=== PATIENT | female | born 1930 | race Caucasian/White ===

== ENCOUNTER 2020-03-20 17:50 | Inpatient (IN) ==
[2020-03-20] MEDS ORDERED: SODIUM CHLORIDE 0.9% 250 ML IV PRN ×3 (18:19→21:25)
[2020-03-20] MEDS ORDERED: SODIUM CHLORIDE 0.9% 500 ML IV SCH (18:30)
--- NOTE | 2020-03-20 18:33 | Emergency Department Note ---
Impression & Plan Anemia, Weakness, SOB (shortness of breath), Fatigue ED Provider Note NAME: EDUARDO LOPEZ AGE: 89 SEX: F : 1930 ARRIVES VIA: Walk-In INFORMANT: [Patient][son, azra king] ED PROVIDER(S): [Adiel Hansen MD] CHIEF COMPLAINT: Fatigue HISTORY OF PRESENT ILLNESS: The patient is an 89-year-old female who presents to the ER with weakness and fatigue for about a month. She feels dizzy at times. She has noticed some increasing shortness of breath with exertion. No chest pain. No fever, chills, cough or congestion. No abdominal pain. No black or bloody stool, no urinary complaints. The patient saw her doctors office today, her lab work revealed a hemoglobin of 5.8. She was sent to the ED. The patient states that she has never had a blood transfusion, she has never had GI bleeding. She has no real history of severe anemia. REVIEW OF SYSTEMS: See HPI for pertinent positives and negatives. A total of ten systems were revie wed and were otherwise negative. PMHx/PSHx: See Below SOCIAL HISTORY: See Below. PHYSICAL EXAM: GENERAL: Patient is in no acute distress. HEENT: No acute trauma, normocephalic atraumatic, mucous membranes moist, no nasal congestion, no scleral icterus. NECK: No stridor, no adenopathy, no meningismus, trachea is midline. LUNGS: Clear to auscultation bilaterally, no wheeze, no rhonchi, breath sounds equal. HEART: 3/6 systolic murmur, regular rate and rhythm. ABDOMEN: Soft, nontender, bowel sounds positive, no hernias, no peritonitis. EXTREMITIES: No cyanosis or edema, full range of motion of all the joints without pain or difficulty, no signs for acute trauma. NEUROLOGIC: Oriented x 3, no acute motor or sensory deficits, no focal weakness. SKIN: No rash, no jaundice, no diaphoresis. Pale. Rectal: Brown stool, heme-negative. DIFFERENTIAL DIAGNOSIS: Infection, dehydration, metabolic abnormality, hypo/hyperglycemia, electrolyte disturbance, anemia, GI bleed, hypoxia, cardiac sources, intracerebral event, toxicologic, neurologic, as well as other pathologies. EMERGENCY DEPARTMENT COURSE/PROCEDURES: ECG: Indication was weakness. The ECG shows a normal sinus rhythm with some potential LVH. The rate is 74. The QTc is 412. There is no ST elevation, no PVCs. There is poor R wave progression. Continuous Cardiac Monitoring: An order was placed for continuous cardiac monitoring. The monitor shows a rate of 72 with normal sinus rhythm. Critical Care Note: I have personally spent greater than 33 minutes of critical care time in the direct management of this patient. This includes bedside care, interpretation of diagnostic studies, and testing, discussion with consultants, patient, and family members, and other required patient management activities. This 33 minutes is in excess of all separately billable procedures. MEDICAL DECISION MAKING: There is no leukocytosis. The patient is anemic with a hemoglobin of 5.6. Platelet count is normal. No coagulopathy. There is some mild renal insufficiency but this has been documented before. No significant electrolyte abnormality requiring correction. No evidence for liver enzyme elevation. The patient appeared to be in a euthyroid state. ECG showed a sinus rhythm, no acute ischemia. Cardiac enzyme testing x1 is not consistent with acute cardiac injury. Chest film does not show pneumonia or CHF. On exam, the patient was not febrile or toxic. She did appear pale. Rectal exam was heme-negative. Patient received a 500 cc saline bolus. She was ordered for 1 unit of packed red blood cells to be transfused while here in the ED. She did sign consent for the transfusion. The cause for the anemia is not clear. Further work-up in the hospital is required. The patient will likely require more than 1 unit of packed red blood cells. I spoke to the patient and case management. The on-call hospitalist has been consulted. Past Med/Surg History Medical History Cerebellar infarct (Inactive) Chronic kidney disease, stage IV (severe) (Chronic) Mixed hyperlipidemia (Chronic) No pertinent past medical history Pre-diabetes (Chronic) TIA (transient ischemic attack) (Acute) Vertebral artery dissection (Chronic) Surgical History S/P appendectomy (Resolved) Family History Sister TIA (transient ischemic attack) Brother Cancer Heart disease Social History Preferred Language: Croatian Communication Ability: Effective Java Developer Required: No Beliefs That Will Affect Care: None Current Living Situation: Alone Feels Safe at Home: Yes Smoking Status: Never smoker Second Hand Exposure: No ; Hx Alcohol Use: Yes Alcohol type: hard liquor Alcohol Intake Frequency Comment: Pt drinks [place] 2-3 x per week. Hx Substance Use: No Allergies Allergies Allergy/AdvReac Type Severity Reaction Status Date / Time No Known Allergies Allergy Unverified 03/20/20 20:00 Home Meds Home Medications Medication Instructions Recorded Confirmed amlodipine [Norvasc] 2.5 mg PO DAILY 03/20/20 03/20/20 aspirin 81 mg PO DAILY 03/20/20 03/20/20 atorvastatin [Lipitor] 10 mg PO DAILY 03/20/20 03/20/20 cholecalciferol (vitamin D3) 75 mcg PO DAILY 03/20/20 03/20/20 [Vitamin D3] cyanocobalamin (vitamin B-12) 1,000 mcg PO DAILY 03/20/20 03/20/20 [Vitamin B-12] Results & Data (ED) Vital Signs Vital Signs - 24 hr 03/20/20 17:57 03/20/20 18:42 03/20/20 19:06 Temperature 36.4 C L Temperature Source Oral Pulse Rate 84 72 Pulse Rate from SpO2 Sensor 74 Respiratory Rate 18 18 Respiratory Effort / Characteristics Non-Labored Respiratory Depth Normal Blood Pressure 145/62 H 139/65 Blood Pressure Mean 89 98 Pulse Oximetry 96 95 97 Oxygen Delivery Method Room Air Room Air Sepsis Recent Fever Within 48 Hours No Sepsis Action Taken by Nursing No Action Required 03/20/20 19:30 03/20/20 20:00 03/20/20 20:15 Temperature 36.7 C Temperature Source Oral Pulse Rate 74 83 92 H Pulse Rate from SpO2 Sensor 76 83 Respiratory Rate 18 18 18 Respiratory Effort / Characteristics Respiratory Depth Blood Pressure 143/75 H 138/114 H 152/72 H Blood Pressure Mean 114 122 98 Pulse Oximetry 97 97 97 Oxygen Delivery Method Sepsis Recent Fever Within 48 Hours Sepsis Action Taken by [facility] Medications Current Medication List: was personally reviewed by me Laboratory Data Attestation: I reviewed the patient's lab results. Result diagrams: 03/20/20 18:23 03/20/20 18:23 Lab Results 03/20/20 03/20/20 03/20/20 Range/Units 18:23 18:23 18:23 WBC 7.30 (4.8-10.8) K/uL RBC 2.58 L (4.2-5.4) M/uL Hgb 5.6 L* (12.0-16.0) g/dL Hct 18.9 L* (37-47) % MCV 73.3 L (80-100) fL MCH 21.7 L (25-34) pg MCHC 29.6 L (32-36) g/dL RDW Std Deviation 44.8 (36.4-46.3) fL RDW Coeff of Marucs 16.6 H (11.5-14.5) % Plt Count 232 (130-400) K/uL MPV 9.2 (7.4-10.4) fL Immature Gran % (Auto) 0.3 % Neut % (Auto) 43.0 % Lymph % (Auto) 43.4 % [place] % (Auto) 7.8 % Eos % (Auto) 4.5 % Baso % (Auto) 1.0 % Neut # (Auto) 3.14 (1.4-6.5) K/uL Lymph # (Auto) 3.17 (1.2-3.4) K/uL [place] # (Auto) 0.57 (0.11-0.59) K/uL Eos # (Auto) 0.33 (0-0.5) K/uL Baso # (Auto) 0.07 (0-0.2) K/uL Immature Gran # (Auto) 0.02 (0.00-0.02) K/uL Hypochromasia Present Poikilocytosis Present PT 11.8 (9.0-12.0) Seconds INR 1.1 (0.9-1.1) APTT 24.7 (21.0-31.0) Seconds PTT Ratio 0.9 Sodium (136-145) mmol/L Potassium (3.5-5.1) mmol/L Chloride (98-107) mmol/L Carbon Dioxide (21-32) mmol/L Anion Gap (3-11) BUN (7-18) mg/dl Creatinine (0.6-1.2) mg/dl Est Cr Clr Drug Dosing ml/min Est GFR ( Amer) Est GFR (Non-Af Amer) BUN/Creatinine Ratio (10-20) Glucose (70-99) mg/dl Calcium (8.5-10.1) mg/dl Magnesium (1.8-2.4) mg/dl Total Bilirubin (0.2-1) mg/dl AST (15-37) U/L ALT (12-78) U/L Alkaline Phosphatase (45-117) U/L Troponin I (0-0.045) ng/ml Total Protein (6.4-8.2) gm/dl Albumin (3.4-5.0) gm/dl Globulin (2.5-4.0) gm/dl Albumin/Globulin Ratio (0.9-2) TSH (0.300-4.500) uIu/ml Blood Type O Positive Blood Type Recheck Antibody Screen NEGATIVE Crossmatch See Detail 03/20/20 03/20/20 Range/Units 18:23 18:47 WBC (4.8-10.8) K/uL RBC (4.2-5.4) M/uL Hgb (12.0-16.0) g/dL Hct (37-47) % MCV (80-100) fL MCH (25-34) pg MCHC (32-36) g/dL RDW Std Deviation (36.4-46.3) fL RDW Coeff of Marcus (11.5-14.5) % Plt Count (130-400) K/uL MPV (7.4-10.4) fL Immature Gran % (Auto) % Neut % (Auto) % Lymph % (Auto) % [place] % (Auto) % Eos % (Auto) % Baso % (Auto) % Neut # (Auto) (1.4-6.5) K/uL Lymph # (Auto) (1.2-3.4) K/uL [place] # (Auto) (0.11-0.59) K/uL Eos # (Auto) (0-0.5) K/uL Baso # (Auto) (0-0.2) K/uL Immature Gran # (Auto) (0.00-0.02) K/uL Hypochromasia Poikilocytosis PT (9.0-12.0) Seconds INR (0.9-1.1) APTT (21.0-31.0) Seconds PTT Ratio Sodium 139 (136-145) mmol/L Potassium 4.4 (3.5-5.1) mmol/L Chloride 106 (98-107) mmol/L Carbon Dioxide 26 (21-32) mmol/L Anion Gap 7.0 (3-11) BUN 28 H (7-18) mg/dl Creatinine 1.34 H (0.6-1.2) mg/dl Est Cr Clr Drug Dosing 22.4 ml/min Est GFR ( Amer) 40.6 Est GFR (Non-Af Amer) 35.0 BUN/Creatinine Ratio 20.7 H (10-20) Glucose 106 H (70-99) mg/dl Calcium 9.1 (8.5-10.1) mg/dl Magnesium 2.2 (1.8-2.4) mg/dl Total Bilirubin 0.3 (0.2-1) mg/dl AST 27 (15-37) U/L ALT 11 L (12-78) U/L Alkaline Phosphatase 78 (45-117) U/L Troponin I < 0.015 (0-0.045) ng/ml Total Protein 7.1 (6.4-8.2) gm/dl Albumin 3.8 (3.4-5.0) gm/dl Globulin 3.3 (2.5-4.0) gm/dl Albumin/Globulin Ratio 1.1 (0.9-2) TSH 1.970 (0.300-4.500) uIu/ml Blood Type Blood Type Recheck O Positive Antibody Screen Crossmatch Administered Medications Discontinued Medications Sodium Chloride (Nss) 500 mls @ 999 mls/hr IV .Q31M [facility] Stop: 03/20/20 19:00 Last Infusion: 03/20/20 19:29 Dose: 0 mls/hr Documented by: [id number] Admin: 03/20/20 18:45 Dose: 999 mls/hr Documented by: [id number] Imaging Data Radiologist's Impression: XR chest 1V portable CLINICAL HISTORY: weakness COMPARISON STUDY: 05/24/2018 FINDINGS: The cardiac and mediastinal contours remain stable. There is a retrocardiac opacity consistent with a hiatal hernia. There is no lobar consolidation. There is no failure. There is are no pleural effusions. There is minor basilar interstitial thickening/atelectasis.[ IMPRESSION: No active disease in the chest. Blood Pressure Blood Pressure Findings: Elevated blood pressure Blood Pressure Disposition: further management by hospitalist Discharge Plan Visit Data Chief Complaint: Abnormal Labs/Diagnostic Testing Stated Complaint: REFERRED BY DR. HENRIQUEZ FOR ABNORMAL LABS ED Provider: Adiel Hansen Discharge Problem: Anemia, Weakness, SOB (shortness of breath), Fatigue Patient Disposition: Admitted As Inpatient Condition: Good Forms Stand Alone Forms: [facility] Emergency Department, Important Visit Information Prescriptions Prescriptions: No Action atorvastatin [Lipitor] 10 mg tablet 10 mg PO DAILY RF: 0 cyanocobalamin (vitamin B-12) [Vitamin B-12] 1,000 mcg Tablet 1,000 mcg PO DAILY RF: 0 amlodipine [Norvasc] 2.5 mg tablet 2.5 mg PO DAILY RF: 0 aspirin 81 mg Tablet,Delayed Release (Dr/Ec) 81 mg PO DAILY RF: 0 cholecalciferol (vitamin D3) [Vitamin D3] 25 mcg (1,000 unit) Tablet 75 mcg PO DAILY RF: 0 Referrals Referrals: Roderick Henriquez MD [Primary Care Provider] - Discharge Problem: Anemia Qualifiers: Anemia type: unspecified type Qualified Code(s): D64.9 - Anemia, unspecified Fatigue Qualifiers: Fatigue type: unspecified Qualified Code(s): R53.83 - Other fatigue
[2020-03-20 18:52] LABS: INR 1.1 (0.9-1.1); Partial Thromboplastin Ratio 0.9; Partial Thromboplastin Time 24.7 Seconds (21.0-31.0); Prothrombin Time 11.8 Seconds (9.0-12.0)
[2020-03-20 18:53] LABS: Hematocrit (blood only) 18.9 % (37-47); Hemoglobin 5.6 g/dL (12.0-16.0); Mean Corpuscular Hemoglobin 21.7 pg (25-34); Mean Corpuscular Hgb Conc 29.6 g/dL (32-36); Mean Corpuscular Volume 73.3 fL (80-100); Mean Platelet Volume 9.2 fL (7.4-10.4); Platelet Count 232 K/uL (130-400); RDW Coefficient of Variation 16.6 % (11.5-14.5); RDW Standard Deviation 44.8 fL (36.4-46.3); Red Blood Count 2.58 M/uL (4.2-5.4)
--- NOTE | 2020-03-20 19:00 | XRay Report ---
XR chest 1V portable CLINICAL HISTORY: weakness COMPARISON STUDY: 05/24/2018 FINDINGS: The cardiac and mediastinal contours remain stable. There is a retrocardiac opacity consist ent with a hiatal hernia. There is no lobar consolidation. There is no failure. There is are no pleur al effusions. There is minor basilar interstitial thickening/atelectasis.[ IMPRESSION: No active disease in the chest. ACT 112: Negative or not required by law. Electronically signed by: Luis Hodges M.D. 03/20/2020 6:59 PM
[2020-03-20 19:09] LABS: Alanine Aminotransferase 11 U/L (12-78); Albumin Level 3.8 gm/dl (3.4-5.0); Aspartate Aminotransferase 27 U/L (15-37); BUN Creatinine Ratio 20.7 (10-20); Blood Urea Nitrogen 28 mg/dl (7-18); Calcium 9.1 mg/dl (8.5-10.1); Carbon Dioxide 26 mmol/L (21-32); Chloride 106 mmol/L (98-107); Creatinine Clr Calc Pharmacy 22.4 ml/min; Est GFR (African American) 40.6; Glucose 106 mg/dl (70-99); Magnesium 2.2 mg/dl (1.8-2.4); Potassium 4.4 mmol/L (3.5-5.1); Sodium 139 mmol/L (136-145)
[2020-03-20 19:19] LABS: Albumin Globulin Ratio 1.1 (0.9-2); Alkaline Phosphatase 78 U/L (45-117); Bilirubin,Total 0.3 mg/dl (0.2-1); Globulin 3.3 gm/dl (2.5-4.0); Total Protein 7.1 gm/dl (6.4-8.2); Troponin I < 0.015 ng/ml (0-0.045)
[2020-03-20 19:57] LABS: Basophils # (auto) 0.07 K/uL (0-0.2); Eosinophils # (auto) 0.33 K/uL (0-0.5); Eosinophils % (auto) 4.5 %; Hypochromasia Present; Immature Granulocytes # (auto) 0.02 K/uL (0.00-0.02); Immature Granulocytes % (auto) 0.3 %; Lymphocytes # (auto) 3.17 K/uL (1.2-3.4); Lymphocytes % (auto) 43.4 %; Monocytes # (auto) 0.57 K/uL (0.11-0.59); Monocytes % (auto) 7.8 %; Neutrophils # (auto) 3.14 K/uL (1.4-6.5); Poikilocytosis Present
[2020-03-20] MEDS ORDERED: SODIUM CHLORIDE 0.9% 1000ML 1,000 ML IV SCH (20:30)
[2020-03-20 20:45] LABS: Appearance Urine Clear (Clear); Bilirubin Urine Negative (Negative); Blood Urine Negative (Negative); Color Urine Yellow; Glucose Urine UA Negative (Negative); Ketones Urine Negative (Negative); Leukocyte Esterase Urine Negative (Negative); Nitrite Urine Negative (Negative); Protein Urine Negative (Negative); Specific Gravity Urine 1.009 (1.000-1.030); Urobilinogen Urine Negative (Negative); pH Urine 7.5 (4.5-7.5)
--- NOTE | 2020-03-20 20:58 | History & Physical Report ---
Date of Service March 20, 2020 Assessment & Plan (1) Anemia: Yanet Smith is a generally healthy 89 year old woman living independently with PMH of TIA and HTN who presents with several months of progressive fatigue, dyspnea with exertion and more frequent lightheadedness Symptomatic Anemia Patient found to have anemia of 5.8, microcytic No hisory of GI bleeding or melena that she can recall, hemoccult in ED negative Due to progressive and mild nature of symptoms and last admission two years ago with hemoglobin around 12 this has likely been a slow progressive process Suspect likely iron deficiency possible long GI bleed that recently resolved. Will order anemia workup, Iron studies, reticulocyte count, LDH, haptoglobin, B12, folate, TSH Will continue to check stools for hemoccult Will get CT abdomen for concern of any kind of retroperitoneal bleeding Transfusing 2 units at present will recheck CBC in am Will likely need colonoscopy either here if any active bleeding or as an outpatient History of TIA HOlding ASA and clopidogrel Continue statin Lower limb edema Mild, likely secondary to Amolidpine Will check echo cardiogram in am with progressive exertional dyspnea and leg swelling symptoms to evaluate for any CHF Dispo: Admit to PCU for transfusion, h and h monitoring and continued evaluation for any GI bleeding DVT PPx: SCD's F/E/N: NPO DNR/DNI (2) Weakness: (3) SOB (shortness of breath): (4) Fatigue: (5) Chronic kidney disease, stage IV (severe): (6) TIA (transient ischemic attack): History of Present Illness Chief Complaint: Symptomatic Anemia Primary Care Provider: Roderick Henriquez MD Yanet Smith is an incredibly sweet and generally very healthy 89 year old woman with a past medical history significant for TIA and hypertension and anemia who is here today for severe symptomatic anemia discovered in her PCP's office. She has been feeling weak and occasionally dizzy off and on for the past few months. This has included some progressive exertional dyspnea. She lives alone at home and does all her own housework and notices that she cannot do as much as she could before due to getting short of breath. She denies any hematochezia, melena, hematuria, hematemesis or hemoptysis, denies abdominal pain, vaginal bleeding, fevers, chills, shortness of breath at rest, cough, nausea, vomiting, diarrhea, or neuro symptoms she does endorse occasional constipation and leg swelling that seems to be worst at night and best in the morning. She lost about 30 pounds last year following a hip injury and feels that at times she doesn't have much appetite but she has held steady in her weight and appetite the last few months and has not been having any muscle weakness that she or her son has noticed. She denies smoking, drinks occasional alcohol and no recreational drug use. No other concerns at present she wishes to be DNR/DNI, she is consented for blood transfusion. Allergies Allergy/AdvReac Type Severity Reaction Status Date / Time No Known Allergies Allergy Unverified 03/20/20 20:00 Home Medications Home Medications Medication Instructions Recorded Confirmed Type amlodipine [Norvasc] 2.5 mg PO DAILY 03/20/20 03/20/20 History atorvastatin [Lipitor] 10 mg PO DAILY 03/20/20 03/20/20 History cholecalciferol (vitamin D3) 75 mcg PO DAILY 03/20/20 03/20/20 History [Vitamin D3] cyanocobalamin (vitamin B-12) 1,000 mcg PO DAILY 03/20/20 03/20/20 History [Vitamin B-12] Past Med/Surg History Medical History Cerebellar infarct (Inactive) Chronic kidney disease, stage IV (severe) (Chronic) Mixed hyperlipidemia (Chronic) No pertinent past medical history Pre-diabetes (Chronic) TIA (transient ischemic attack) (Acute) Vertebral artery dissection (Chronic) Surgical History S/P appendectomy (Resolved) Family History Sister TIA (transient ischemic attack) Brother Cancer Heart disease Social History Preferred Language: Czech Communication Ability: Effective Manager Medical Required: No Beliefs That Will Affect Care: None Current Living Situation: Alone Feels Safe at Home: Yes Smoking Status: Never smoker Second Hand Exposure: No ; Hx Alcohol Use: Yes Alcohol type: hard liquor Alcohol Intake Frequency Comment: Pt drinks [place] 2-3 x per week. Hx Substance Use: No Review of Systems Review of Systems: All systems reviewed & are unremarkable except as noted in HPI & below Physical Exam Constitutional: well developed and well nourished; no acute distress, not ill appearing and no altered mental status Eyes: PERRL, conjunctivae normal, anicteric sclerae Respiratory: normal respiratory effort, lungs clear to auscultation Cardiovascular: Rate/Rhythm: regular rate and regular rhythm Heart Sounds: no click, no gallop, no murmur and no cardiac rub Extremities: + edema (bilateral 1+ pitting edema) Gastrointestinal (Abdomen): normal bowel sounds, soft, nontender, no hepatosplenomegaly Skin: no rashes, warm and dry Results & Data Results & Data ([facility]) Vital Signs (Past 12 Hours) Vital Signs Temp Pulse Resp BP Pulse Ox 03/20/20 20:35 36.7 C 79 18 142/70 H 98 03/20/20 20:15 36.7 C 92 H 18 152/72 H 97 03/20/20 20:00 83 18 138/114 H 97 03/20/20 19:30 74 18 143/75 H 97 03/20/20 19:06 72 18 139/65 97 03/20/20 18:42 95 03/20/20 17:57 36.4 C L 84 18 145/62 H 96 Supervising Physician Co-Signing Physician Notes Attending addendum: I have physically seen this patient, have supervised the medical residents activities, and agree with the H&P unless as otherwise noted. Assessment and Plan: Symptomatic anemia- Hemoglobin 5.6 upon admission, with hypochromic and microcytic indices. Check the usual studies: Iron studies, reticulocyte, haptoglobin, B12, folate, TSH and LDH. Hemoccult stools N.p.o. except essential medications Order CT abdomen pelvis to look for occult bleed Start with 2 units transfusing PRBCs from the ED H&H every 6 hours Protonix drip Consult gastroenterology History of TIA- Hold aspirin and clopidogrel Lower extremity edema- Hold amlodipine. 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 Resident Activity Tracking Resident Involvement: Resident Care Provided Care Provided: Adult Hospital Medicine (1) Fatigue Fatigue type: unspecified Qualified Code(s): R53.83 - Other fatigue (2) Anemia Anemia type: unspecified type Qualified Code(s): D64.9 - Anemia, unspecified
[2020-03-20] MEDS ORDERED: ACETAMINOPHEN 325 MG TAB PO PRN (21:25)
[2020-03-20] MEDS ORDERED: POLYETHYLENE (MIRALAX) 17 GM PACK PO PRN (21:25)
[2020-03-20] MEDS ORDERED: ONDANSETRON INJ 2 MG/ML 2 ML VIAL IV PRN (21:25)
[2020-03-20 21:47] LABS: Reticulocyte % 1.6 % (0.5-2.0); Reticulocytes # 0.04 10^6/uL (0.02-0.10)
[2020-03-20 22:26] LABS: C Reactive Protein < 0.29 mg/dl (0-0.29); Ferritin 4.2 ng/ml (8-388); Iron 20 mcg/dl (35-150); Total Iron Binding Capacity 420 mcg/dl (250-450); Transferrin 301 mg/dl (200-360)
[2020-03-21 06:08] LABS: Hematocrit (blood only) 24.8 % (37-47); Hemoglobin 7.7 g/dL (12.0-16.0); Mean Corpuscular Volume 77.3 fL (80-100); Mean Platelet Volume 8.8 fL (7.4-10.4); Platelet Count 176 K/uL (130-400); RDW Coefficient of Variation 16.6 % (11.5-14.5); RDW Standard Deviation 47.1 fL (36.4-46.3); Red Blood Count 3.21 M/uL (4.2-5.4)
[2020-03-21 06:27] LABS: Basophils # (auto) 0.04 K/uL (0-0.2); Basophils % (auto) 0.6 %; Eosinophils # (auto) 0.44 K/uL (0-0.5); Eosinophils % (auto) 6.6 %; Hypochromasia Present; Immature Granulocytes # (auto) 0.01 K/uL (0.00-0.02); Immature Granulocytes % (auto) 0.1 %; Lymphocytes # (auto) 3.32 K/uL (1.2-3.4); Lymphocytes % (auto) 49.6 %; Monocytes # (auto) 0.52 K/uL (0.11-0.59); Monocytes % (auto) 7.8 %; Neutrophils # (auto) 2.37 K/uL (1.4-6.5); Neutrophils % (auto) 35.3 %
--- NOTE | 2020-03-21 07:59 | CT Scan Report ---
ABDOMEN AND PELVIS CT WITHOUT CONTRAST CT DOSE: 306.26 mGy.cm HISTORY: Acute generalized abdominal pain Concern for retroperitoneal bleeding TECHNIQUE: Multiaxial CT images of the abdomen and pelvis were performed without contrast. A dose lo wering technique was utilized adhering to the principles of ALARA. COMPARISON STUDY: None. FINDINGS: Mild traction bronchiectasis with subpleural reticular fibrosis and atelectasis of the lung bases. No pneumatosis or pneumoperitoneum. The imaged inferior cardiac chambers are unremarkable in size. Decr eased attenuation of the cardiac blood pole suggests anemia. Extensive coronary artery calcifications . Limited evaluation of the solid abdominal organs without the use of IV contrast. The liver is somewha t diminutive in size. Liver and spleen are otherwise unremarkable. Distended gallbladder with choleli thiasis. No gallbladder wall thickening or pericholecystic fluid identified. No appreciable biliary d uctal dilation. Mild generalized pancreatic atrophy. Unremarkable adrenal glands. Kidneys are within normal limits. Mild urinary bladder distention. Unremarkable appearance of uterus. No adnexal mass le sions. Calcified plaque of the abdominal aorta. Multiple phleboliths of the pelvis. No adenopathy or retroperitoneal hematoma. Moderate sized hiatal hernia with distal esophageal wall thickening and periesophageal varices. No cyndy wel obstruction or bowel wall thickening. Colonic diverticulosis without acute diverticulitis. Modera te fecal retention. The appendix is not diagnostically visualized and is reportedly surgically absent . Calcified granulomata of the subcutaneous gluteal distributions. Demineralized appearance of the cyndy carmel. Degenerative changes of the spine, pelvis and hips. Irregular sclerosis of the right sacrum may reflect a healed remote sacral insufficiency fracture. Ununited chronic fracture of the right inferio r pubic ramus. Partially healed remote appearing fracture of the right superior pubic ramus. Lumbar l evoscoliosis. Grade 1 anterolisthesis L4 on L5, likely degenerative. Superior endplate compression de formity at T9. T11 burst fracture with 3 mm retropulsion. Mild superior endplate compression deformit y at T12. Burst fracture at L1 with 7 mm retrolisthesis. Superior endplate compression deformities at L2 and L3 without significant retropulsion. Mild inferior endplate compression deformity at L5. No s ignificant paravertebral edema. IMPRESSION: 1. No acute intra-abdominal or intrapelvic abnormality. 2. No bowel obstruction or bowel wall thickening. 3. Multiple age-indeterminate compression deformities of the thoracic and lumbar spine, several of wh ich demonstrate associated retropulsion. Correlate with patient history and point tenderness to deter mine acuity. 4. Distended gallbladder with cholelithiasis. No definite CT evidence of acute cholecystitis. 5. Moderate sized hiatal hernia. 6. Moderate fecal retention. 7. Colonic diverticulosis without acute diverticulitis. ACT 112: Negative or not required by law. The above report was generated using voice recognition software. It may contain grammatical, syntax o r spelling errors. Electronically signed by: Himanshu Joshi M.D. 03/21/2020 7:57 AM
[2020-03-21] MEDS ORDERED: CHOLECALCIFEROL 1,000 UNITS 25 MCG TAB PO SCH (09:00)
[2020-03-21] MEDS ORDERED: CYANOCOBALAMIN 500 MCG TABLET (VITAMIN B-12) PO SCH (09:00)
[2020-03-21] MEDS ORDERED: ATORVASTATIN 10 MG TAB PO SCH (09:00)
--- NOTE | 2020-03-21 18:23 | Discharge Summary ---
Date of Service March 21, 2020 Admission HPI Per Admitting Provider Yanet Smith is an incredibly sweet and generally very healthy 89 year old woman with a past medical history significant for TIA and hypertension and anemia who is here today for severe symptomatic anemia discovered in her PCP's office. She has been feeling weak and occasionally dizzy off and on for the past few months. This has included some progressive exertional dyspnea. She lives alone at home and does all her own housework and notices that she cannot do as much as she could before due to getting short of breath. She denies any hematochezia, melena, hematuria, hematemesis or hemoptysis, denies abdominal pain, vaginal bleeding, fevers, chills, shortness of breath at rest, cough, nausea, vomiting, diarrhea, or neuro symptoms she does endorse occasional constipation and leg swelling that seems to be worst at night and best in the morning. She lost about 30 pounds last year following a hip injury and feels that at times she doesn't have much appetite but she has held steady in her weight and appetite the last few months and has not been having any muscle weakness that she or her son has noticed. She denies smoking, drinks occasional alcohol and no recreational drug use. No other concerns at present she wishes to be DNR/DNI, she is consented for blood transfusion. Principal Diagnosis symptomatic anemia, presumably gi source of blood loss (for outpatient w/u) Discharge Exam gen aao pleasant nad heent nc at mmm breathing unlabored no accessory muscles good effort skin no rashes no pallor or icterus neuro cn 2-12 grossly intact gross motor intact. mental status good Discharge Data Allergies Allergy/AdvReac Type Severity Reaction Status Date / Time No Known Allergies Allergy Unverified 03/20/20 20:00 Consultations 03/20/20 18:59 ED Decision to Admit Stat Ordered Studies 03/20/20 21:25 CT abd pelvis wo con Urgent Hospital Course (1) Anemia: symptomatic, Hgb 5.6 on admission --> transfused 2 units and improved to 7.7 ---feels much better, vitals stable, no hemorrhage - stable for outpt w/u ---discussed typical w/u for this being colo - she doesn't believe she's ever had one. discussed more controversial utility given her age, but since CT did not show anything worrisome, it's quite unlikely that she would have anything invasive or metastatic - and therefore something that might be amenable to endoscopic intervention is more possible. set up w GI to discuss further - stable for home CKD ~3-4 (?accuracy of cockroft gault in a nearly 89 year old) - stable, outpt f/u. stable for home Total Time Total Time Spent Total Time Spent (In Minutes): >30 Discharge Plan Discharge Items Patient Disposition: Home - Self-Care Reason For Visit: SEVERE SYMPTOMATIC ANEMIA Discharge Diagnosis: anemia - see below Condition on Discharge: Good Activity: Resume your previous activity Non-emergency contact: Primary Care Provider Call non-emergency contact if: you have any medication questions Follow-up/Referrals: Sukhjinder Gooden MD [Physician] - 03/23/20 2:05 pm (Please, follow up at [facility] with Dr. Gooden on March 23 at 2:20 pm (arrive 2:05 pm). *The office is located at [address] [place] [address] in [facility]). If you need to change this appointment, call the office at [phone]. BE SURE TO WEAR A MASK. THANK YOU) Roderick Henriquez MD [Primary Care Provider] - 03/29/20 10:30 am (Please, follow up with Dr. Eugenio Henriquez on FridayMarch 29 at 10:30 am. *If you need to change this appointment, call the office at [phone].) Diet: Regular Addtl Attending Provider Instructions: anemia (low blood counts) -you were admitted due to symptoms from having very low blood counts (normal is about 12, you were 5.6; now you're up to 7.7 - typically people don't require transfusions unless they're at least under 7). as we discussed, the most common reason for low blood counts like this is a slow oozing of blood in the GI tract - and therefore the next step in going about getting to the bottom of it is a colonoscopy. since you presented with the symptoms of anemia, not of bleeding (ie you showed up due to the low blood counts, not due to a hemorrhage) it's highly likely that this blood loss slowly occurred over months and months. with this in mind, it is certainly safe to get you home and follow through with the rest of this as an outpatient -to keep an eye on things and hopefully stave off a future admission, we'd ask that Dr Henriquez check your blood counts around once every week or so for the near- future (at least until we get to the bottom of where the bleeding was coming from). -to make sure there's minimal ongoing bleeding, we'll have you stop taking your 81mg aspirin for now -- once the source of bleeding is evaluated, Dr Henriquez will then be able to better guide you on if we're stopping the aspirin forever, or if it can safely be resumed at a later date -to prevent bleeding as well we'd have you strictly hold off on any anti- inflammatories (no alleve, naproxen, ibuprofen, advil, etc) -we're working on getting you scheduled with gastroenterology to talk about a colonoscopy - the "could be" list on what caused the bleeding really ranges anywhere from blood vessels too close to the surface, to bleeding into a diverticulum, to polyps or cancers (although with the CT being negative for anything worrisome an already-metastatic cancer is quite unlikely -- CTs don't really show a small cancer well, but do show lymph nodes or liver spots when there is cancer that's already spread) - because a lot of what we'd find could be intervened upon by scope, and because it can help guide Dr Henriquez on restarting your aspirin or not, it is quite reasonable to see GI to talk about more (late addendum - the [facility]ologists did not have availability until late April, so our navigator was able to get you in with Dr Gooden of [facility] later this week, he is excellent and you'll be in very good hands) incidentally the CT scan did show some vertebral compression fractures - frequently CTs are not able to really show "how old" those were, but the fact that you were not having any significant low back pain suggests that they've been there a while. we do see this fairly frequently - where a scan done for different reasons incidentally shows compression fractures. usually there's not really anything specific that needs to be done for the fractures, but it does raise the question of bone health - in that respect when you follow up with Dr Henriquez we'll ask him to review if you're due for a DEXA scan, modification in bone health treatment, etc. Pending Studies at Discharge: No Stand-Alone Forms: My [facility], Smoking Cessation Medications and DC Order Prescriptions: Continued atorvastatin [Lipitor] 10 mg tablet 10 mg PO DAILY RF: 0 cyanocobalamin (vitamin B-12) [Vitamin B-12] 1,000 mcg Tablet 1,000 mcg PO DAILY RF: 0 amlodipine [Norvasc] 2.5 mg tablet 2.5 mg PO DAILY RF: 0 cholecalciferol (vitamin D3) [Vitamin D3] 25 mcg (1,000 unit) Tablet 75 mcg PO DAILY RF: 0 Discontinued aspirin 81 mg Tablet,Delayed Release (Dr/Ec) 81 mg PO DAILY RF: 0 Discharge Orders: Discharge Order (Routine); Ordered 03/21/20 Ordered By: Dickson Mack Admission Data Admit Date/Time: 03/20/20 20:29 Attending Provider: Dickson Mack Admit Provider: Zan Esparza Primary Care Provider: Roderick Henriquez Other Providers: Chris Nogueira Other Interventions: Discharge Summary Assessment (RN) Last Done: 03/21/20 16:00 DC Date/Time DO NOT enter until pt leaves facility: 03/21/20 17:14 Coding Level of Care Code 72265 OBS Care - Discharge Diagnoses Anemia D64.9 Anemia type: unspecified type
--- NOTE | 2020-03-21 18:40 | Communication Note ---
Date of Service: March 21, 2020 code 44 note. with hindsight, given how quickly she stabilized with transfusions, and with hindsight given that there was no hemorrhage, but more of a chronic picture of blood loss, observation level of care would be appropriate.
--- NOTE | 2020-03-21 19:51 | Billing Data ---
Date of Service March 21, 2020 Coding Level of Care Code 01769 Initial Inpt Care Lvl 3
--- NOTE | 2020-03-21 21:18 | XCELERA ---
[id number]
--- NOTE | 2020-03-22 00:05 | Electrocardiogram Report ---
Test Reason : Blood Pressure : / mmHG Vent. Rate : 074 BPM Atrial Rate : 074 BPM P-R Int : 184 ms QRS Dur : 082 ms QT Int : 372 ms P-R-T Axes : 020 -16 020 degrees QTc Int : 412 ms Normal sinus rhythm Cannot rule out Anterior infarct , age undetermined Abnormal ECG When compared with ECG of 24-MAY-2018 15:21, Premature atrial complexes are no longer Present Minimal criteria for Anterior infarct are now Present Confirmed by Robert Hathaway ([id number]) on 03/22/2020 12:05:06 AM Referred By: Roderick Henriquez Confirmed By:Robert Hathaway
== END 2020-03-21 17:14 | disposition home or self-care (01) | DRG 812 ==
LOC: ED 17:50 → SUATTDRO 20:29 → 2E 20:29